=== PATIENT | male | born 1995 | race Caucasian/White ===

== ENCOUNTER 2018-04-29 08:16 | Emergency (ER) | payer BC, OTHER ==
[~2018-04-29] VITALS: Ht 172.7 cm; Wt 83.9 kg
[2018-04-29 08:31] LABS: URINE BILIRUBIN NEGATIVE (Negative); URINE BLOOD 3+ (Negative); URINE CLARITY CLEAR; URINE COLOR YELLOW; URINE GLUCOSE-RANDOM* NEGATIVE (Negative); URINE KETONES NEGATIVE (Negative); URINE LEUKOCYTES NEGATIVE (Negative); URINE NITRITE NEGATIVE (Negative); URINE PROTEIN (DIPSTICK) NEGATIVE (Negative); URINE SPECIFIC GRAVITY >= 1.030 (1.005-1.035); URINE UROBILINOGEN 0.2 E.U./dl (0.2-1.0)
[2018-04-29 08:32] LABS: ABSOLUTE NEUTROPHILS 4.5 thou/uL (1.4-8.2); BASOPHILS 1.2 % (0.0-2.0); EOSINOPHILS 3.6 % (0.0-3.0); HEMATOCRIT 47.5 % (42.0-52.0); HEMOGLOBIN 16.3 gm/dL (14.0-18.0); LYMPHOCYTES 36.6 % (24.0-44.0); MCH 31.9 pg (26.0-34.0); MCHC 34.4 g/dL (28.0-37.0); MCV 92.8 fL (80.0-100.0); MONOCYTES 10.8 % (1.0-8.0); PLATELET COUNT 268 thou/uL (150-400); POLYS 47.8 % (36.0-66.0); RBC 5.12 mil/uL (4.50-6.00); RDW 13.4 % (10.5-14.5); WBC 9.5 thou/uL (4.0-11.0)
[2018-04-29 08:39] LABS: CALCIUM 9.6 mg/dL (8.5-10.1); CREATININE 1.4 mg/dL (0.7-1.3); POTASSIUM 3.6 mmol/L (3.5-5.1)
[2018-04-29 08:43] LABS: URINE RBC 3-10 Few /HPF (0-2)
[2018-04-29 08:44] LABS: BACTERIA 1-9 Few /HPF (None Seen); CASTS None Seen /LPF (None Seen); CRYSTALS None Seen /LPF (None Seen); SQUAMOUS 0-3 Few /LPF (0-3); URINE WBC 0-5 Rare /HPF (0-5)
[2018-04-29 08:45] LABS: ALBUMIN 4.1 g/dL (3.4-5.0); TOTAL BILIRUBIN 0.6 mg/dL (<0.1-1.0); TOTAL PROTEIN 7.3 g/dL (6.4-8.2)
[2018-04-29] MEDS ORDERED: IBUPROFEN 600600 M1 PO (11:23)
[2018-04-29] MEDS ORDERED: SENNA-DOCUSATE1 EAC1 PO (11:23)
[2018-04-29] MEDS ORDERED: NORCO 5-325 TA1 EACH PO (11:23)
[2018-04-29 11:26] VITALS: BP 122/80
== END 2018-04-29 11:36 | disposition home or self-care (01) ==
LOC: ER 08:16
PROVIDERS: Emergency Medicine
DX: N23 Unspecified renal colic (principal); R31.9 Hematuria, unspecified